=== PATIENT | female | born 1950 | race Caucasian/White ===

== ENCOUNTER 2017-04-15 10:25 | Inpatient (IN) | payer MEDICARE, MEDICAID ==
--- NOTE | 2017-04-15 10:52 | ED Physician Chart ---
Chief Complaint/HPI - Patient Information Date Seen:: 04/15/17 Time Seen:: 10:43 Chief Complaint:: sob History of Present Illness:: pt says she is recently travelled from out of [facility] and came into [facility] instead of near her home in [place] (unclear why)...she has a worsening of her copd sx today she says and also would like to talk about her chronic issues such as a enlrged gland at rt neck and her known avascular djd of l hip. she says she has talked w someone local about getting into assisted living bc she feels need to be there but they sent her here to meet w dr schaefer??? she says she is out of all her meds for COPD including vials for her neb machine. she says her neb machine is broken and she is out of all her inhalers. she says she is very sob. o2 sat 100 ra. Allergies:: Allergies Allergy/AdvReac Type Severity Reaction Status Date / Time erythromycin base Allergy Verified 04/15/17 10:39 tetracycline Allergy Verified 04/15/17 10:39 Historian:: Patient Review of Systems - Review of Systems General/Constitutional: No fever, No chills, No weight loss, No weakness, No diaphoresis, No edema, No loss of appetite Skin: No skin lesions, No rash, No bruising Head: No headache, No light-headedness Eyes: No loss of vision, No pain, No diplopia ENT: No earache, No nasal drainage, No sore throat, No tinnitus Neck: No neck pain, No swelling, No thyromegaly, No stiffness, No mass noted Cardio Vascular: No chest pain, No palpitations, No PND, No orthopnea, No edema Pulmonary: SOB, No SOB, No cough, No sputum, No wheezing GI: No nausea, No vomiting, No diarrhea, No pain, No melena, No hematochezia, No constipation, No hematemesis G/U: No dysuria, No frequency, No hematuria Musculoskeletal: No bone or joint pain, No back pain, No muscle pain Endocrine: No polyuria, No polydipsia Psychiatric: No prior psych history, No depression, No anxiety, No suicidal ideation Hematopoietic: No bruising, No lymphadenopathy Allergic/Immuno: No urticaria, No angioedema Neurological: No syncope, No focal symptoms, No weakness, No paresthesia, No headache, No seizure, No dizziness, No confusion, No vertigo Past Medical History - Past Medical History Past Medical History: Asthma/COPD Social History: Smoker, No Alcohol, Other (living in hotel) Medication: Reviewed Family Medical History - Family Member Father Hx Family Hypertension: Yes Physical Exam - Physical Examination General/Constitutional: Awake, Well-developed, well-nourished, Alert, No distress, GCS 15, Non-toxic appearing, Ambulatory Other Gen/Cons comments:: pt is alert and calm. seems stable. no rosen. no sob. no edema. thin woman but ambulatory/mobile. seems competent/cogent. Head: Atraumatic Eyes: Lids, conjuctiva normal, PERRL, EOMI Skin: Nl inspection, No rash, No skin lesions, No ecchymosis, Well hydrated, No lymphadenopathy ENMT: External ears, nose nl, Nasal exam nl, Lips, teeth, gums nl Neck: Nontender, Full ROM w/o pain, No JVD, No nuchal rigidity, No bruit, No mass, No stridor Other Neck comments:: 1cm lymph node palpable at left ant cx chain of neck..nontndr. Respiratory: Nl effort/Exclusion, Clear to Auscultation, No Wheeze/Rhonchi/Rales Other Respiratory comments:: clear no wheeze. no sob. no rosen. nonlabored breathing. Cardio Vascular: RRR, No murmur, gallop, rubs, NL S1 S2 GI: No tenderness/rebounding/guarding, No organomegaly, No hernia, Normal BS's, Nondistended, No mass/bruits, No McBurney tenderness : No CVA tenderness Extremities: No tenderness or effusion, Full ROM, normal strength in all extremities, No edema, Normal digits & nails Neuro/Psych: Alert/oriented, DTR's symmetric, Normal sensory exam, Normal motor strength, Judgement/insight normal, Mood normal, Normal gait, No focal deficits Misc: normal gait, Normal back, No paraspinal tenderness ED Septic Shock - . Is Septic Shock (SBP<90, OR Lactate>4 mmol\L) present?: No Reassessment (Disposition) - Reassessment Reassessment:: pt seems stable. staff has rumor that Dr schaefer plans admit for placement to al facility. 13;45pm have asked staff to call dr schaefer to discuss his plan...call placed. have asked staff for clarity on their thinking and have received no feedback. no callback from Dr Schaefer x 1.5 hrs. Have d/w Myelin RN -charge for hosp..advised dc pt. have written refill for pts meds albuterol mdi and neb vials and for new alb neb machine. I do not see the criticality or mandate of refilling pts valium and baclofen as she hints she has refills on hand in pharmacy and these are chronic addictive meds which I do not have the data to confirm need for etc and pt has a pmd in [facility] Reassessment Condition:: Unchanged - Diagnosis Diagnosis:: 1 copd exacerbation - mild 2 med refill albuterol 3 mod-htn poorly ctrld - Aftercare/Follow up Instructions Aftercare/Follow-Up Instructions:: Counseled pt regarding lab results/diagnosis & need follow up Notes:: pt advised fu w pmd this week for bp rechk and further advice from pmd on txoptions. return if worse. pt has shown no resp instability through ed stay. ambulates wo trouble and seems to have reasonable communication and problem solving skills. she seems well capable of adl. she does not voice SI or HI. - Patient Disposition Discharge/Transfer:: Home Condition at Disposition:: Unchanged
[2017-04-15] MEDS ORDERED: Albuterol Nebulizer 2.5mg/3mL HHN STA (11:00)
[2017-04-15 11:17] LABS: HEMATOCRIT 42.5 % (35.0-45.0); HEMOGLOBIN 14.2 gm/dL (11.7-16.1); MEAN CELL VOLUME 92.8 fl (81-100); MEAN CORPUSCULAR HGB CONC 33.4 pg (28.0-36.0); MEAN PLATELET VOLUME 9.2 fl; PLATELET COUNT 166 Th/cmm (150-400); RED BLOOD COUNT 4.59 Mil/cmm (3.80-5.20); RED CELL DISTRIBUTION WIDTH 12.6 % (11.5-20.0); WHITE BLOOD COUNT 9.3 Th/cmm (4.8-10.8)
[2017-04-15] MEDS ORDERED: Albuterol Nebulizer 2.5mg/3mL HHN ONE (11:31)
--- NOTE | 2017-04-15 11:31 | Diagnostic Imaging Report ---
Portable chest x-ray HISTORY: Shortness of breath The heart size is normal. No focal pulmonary processes. No hilar or mediastinal abnormalities. IMPRESSION: No acute abnormalities
[2017-04-15 11:32] LABS: ALB/GLOB RATIO 1.5 (1.0-1.8); ALKALINE PHOSPHATASE 54 U/L (34-104); ANION GAP 5.8 (7.0-16.0); BILIRUBIN,TOTAL 0.5 mg/dL (0.3-1.0); BUN - UREA NITROGEN 12 mg/dL (7-25); BUN/CREATININE RATIO 17.1; CALCIUM SERUM 9.1 mg/dL (8.6-10.3); CARBON DIOXIDE 29.5 mEq/L (21.0-31.0); CHLORIDE 106 mEq/L (98-107); CREATININE - SERUM 0.7 mg/dL (0.6-1.2); GLUCOSE 87 mg/dL (70-105); POTASSIUM SERUM 3.3 mEq/L (3.5-5.1); SGOT 17 U/L (13-39); SGPT/ALT 11 U/L (7-52); SODIUM SERUM 138 mEq/L (136-145)
[2017-04-15 11:59] LABS: BAND NEUTROPHILE 0 % (0-10); NEUTROPHILS 67 % (40-80); TOTAL CELLS COUNTED 100
[2017-04-15 12:00] LABS: PLATELET ESTIMATE ADEQUATE (NORMAL)
[2017-04-15] MEDS ORDERED: Potassium Chloride 20 mEq ER Tab PO ONE ×2 (13:34→13:49)
[2017-04-15 17:48] VITALS: BP 148/102
[2017-04-15] MEDS ORDERED: Magnesium Hydroxide (MOM) 30 mL UDC PO PRN (19:49)
[2017-04-15] MEDS ORDERED: Maalox 30 mL Cup PO PRN (19:49)
--- NOTE | 2017-04-16 00:30 | Admit Criteria Form ---
Admit Criteria Forms - Admit Criteria Diagnosis: COPD Clinical Indications for Admission to Inpatient Care (Place 'X' for any and all applicable criteria): Admission is indicated for ANY ONE of the following (1)(2)(3): [ X]I. Acute exacerbation by high-risk comorbidity (e.g., pneumonia, dysrhythmia, heart failure, pleural effusion, pneumothorax) or severe underlying COPD (e.g., steroid dependent) [ ]II. Inpatient admission required rather than observation care (see Chronic Obstructive Pulmonary Disease: Observation Care) because of ANY ONE of the following: [ ]a) New or pre-existing signs or symptoms of COPD (eg, dyspnea or Tachypnea at rest or with minimal activity) that persist despite outpatient and observation care treatment [ ]b) New-onset hypoxemia (room air SaO2 less than 90%, PO2 less than 60 mm Hg (8.0 kPa)) that persists despite outpatient and observation care treatment [ ]c) Worsening of pre-existing hypoxemia (eg, new or increased requirement for supplemental oxygen to maintain oxygenation at baseline level) that persists despite outpatient and observation care treatment, with oxygen treatment needs performable only in acute inpatient setting [ ]d) Hypercarbia (PCO2 greater than 40 mm Hg (5.3 kPa))-induced respiratory acidosis (pH less than 7.35) that persists despite outpatient and observation care treatment [ ]e) Supplemental oxygen or respiratory treatments for over 24 hours that are performable only in acute inpatient setting [ ]f) Chest tube placement with active evacuation (e.g., suction, drainage) (5) [ ]g) Other condition, treatment or monitoring requiring inpatient admission [ ]III. Planned invasive surgical or diagnostic procedures requiring acute- care hospitalization [ ]IV. Acute respiratory failure (e.g., uncompensated hypercarbia, severe hypoxemia) [ ]V. Severe comorbid condition (e.g., severe steroid myopathy, acute vertebral fracture) that has acutely worsened pulmonary function [ ]. Confusion state, lethargy, obtundation, stupor or coma Extended stay beyond goal length of stay may be needed for (31)(32): [ ]a ) Respiratory Failure. [ ]b) Severe or persisting hypoxemia or hypercarbia [ ]c) Severe or persistent dyspnea [ ]d) Comorbidities (e.g. chronic heart failure, atrial fibrillation with rapid response, pneumonia) [ ]e) Malnutrition The original [facility] content created by [facility] has been revised. The portions of the content which have been revised are identified through the use of italic text or in bold, and [facility] has neither reviewed nor approved the modified material. All other unmodified content is copyright [facility]. Please see references footnoted in the original [facility] edition 2016 Admit Criteria Met?: Yes
[2017-04-16] MEDS ORDERED: PREGABALIN 100 MG PO SCH (09:00)
[2017-04-16] MEDS: Multivitamin Tab PO SCH (09:13)
--- NOTE | 2017-04-16 16:19 | History and Physical ---
History of Present Illness - HPI Chief Complaint: c/o weakness HPI: 66 year old female patient with h/o COPD presented with c/o worsening sobpatient states being out of all copd meds States having enlarged glands at rt neck Vital Signs: Last Vital Signs Temp 97.6 F 04/16/17 14:34 Pulse 93 04/16/17 14:34 Resp 18 04/16/17 14:34 BP 126/70 04/16/17 14:34 Pulse Ox 97 04/16/17 14:34 Past Medical History Cardiovascular: Report: HTN Pulmonary: Report: Asthma, COPD ENGINE CLEANER: Report: No Pertinent Hx GI: Report: No Pertinent Hx Psych: Report: Depression Musculoskeletal: Report: Low Back Pain Infectious Disease: Report: No Pertinent Hx Renal/: Report: No Pertinent Hx Endocrine: Report: No Pertinent Hx Dermatology: Report: No Pertinent Hx - Past Surgical History Past Surgical History: No pertinent Hx Family Medical History - Family Member Father History Unknown: Yes Ethnicity: Unknown Living Status: Unknown Hx Family Hypertension: Yes Social History Smoke: 1 pack per day Alcohol: None Drugs: None Lives: Other (hotel) Domestic Violence: Negative Health Maintenance Health Maintenance: Other - Medications Home Medications: Home Medication Medication Instructions Recorded Type Albuterol Sulfate [Proair Hfa] 8.5 gm IH Q4H PRN #1 hfa.aer.[email or web address] 04/15/17 Rx Albuterol Sulfate [Proair Hfa] 8.5 gm IH QID 04/15/17 History Baclofen [Lioresal*] 10 mg PO QID 04/15/17 History Diazepam [Valium] 2 mg PO TID 04/15/17 History Fluticasone/Salmeterol [Advair 1 puff INH Q12H 04/15/17 History 250-50 Diskus] Lidocaine 5% Patch [Lidoderm 5% 1 patch TP DAILY 04/15/17 History Patch] Montelukast [Singulair] 10 mg PO DAILY 04/15/17 History Pregabalin [Lyrica] 100 mg PO DAILY 04/15/17 History Temazepam [Restoril] 30 mg PO HS 04/15/17 History - Allergies Allergies/Adverse Reactions: Allergies Allergy/AdvReac Type Severity Reaction Status Date / Time erythromycin base Allergy Verified 04/15/17 10:39 tetracycline Allergy Verified 04/15/17 10:39 Review of Systems - Review of Systems Constitutional: Report: No Significant Eyes: Report: No Significant ENT: Report: No Significant Respiratory: Report: SOB with Excertion. Denies: No Significant Cardiovascular: Report: No Significant Gastrointestinal: Report: No Significant, Nausea Genitourinary: Report: No Significant Musculoskeletal: Report: No Significant Skin: Report: No Significant Neurological: Report: No Significant, Weakness Physical Exam - Physical Exam HEENT: Report: Ears Nose Throat within normal limits Neck: Report: Within normal limits Cardiovascular Systems: Report: +s1/s2 noted Respiratory: Report: Breath Sounds are within normal limits Abdomen: Report: Non-tender to palpation Back: Report: Inspection of back is within normal limits.. Denies: Sacral Wound is noted with visible discharge. Extremities: Report: Non-tender to palpation. Skin: Report: Color of skin is within normal limits Neuro/Psych: Report: Mood affect is within normal limits - Lab Results All Lab Results last 24 hours: Laboratory Last Values WBC 9.3 Th/cmm (4.8-10.8) 04/15/17 11:10 RBC 4.59 Mil/cmm (3.80-5.20) 04/15/17 11:10 Hgb 14.2 gm/dL (11.7-16.1) 04/15/17 11:10 Hct 42.5 % (35.0-45.0) 04/15/17 11:10 MCV 92.8 fl (81-100) 04/15/17 11:10 MCH 31.0 pg (27.0-31.0) 04/15/17 11:10 MCHC Differential 33.4 pg (28.0-36.0) 04/15/17 11:10 RDW 12.6 % (11.5-20.0) 04/15/17 11:10 Plt Count 166 Th/cmm (150-400) 04/15/17 11:10 MPV 9.2 fl 04/15/17 11:10 Band Neutrophils % 0 % (0-10) 04/15/17 11:10 Neutrophils (Manual) 67 % (40-80) 04/15/17 11:10 Lymphocytes 25 % (20-50) 04/15/17 11:10 Monocytes 8 % (2-10) 04/15/17 11:10 Platelet Estimate ADEQUATE (NORMAL) 04/15/17 11:10 Sodium 138 mEq/L (136-145) 04/15/17 11:10 Potassium 3.3 mEq/L (3.5-5.1) L 04/15/17 11:10 Chloride 106 mEq/L (98-107) 04/15/17 11:10 Carbon Dioxide 29.5 mEq/L (21.0-31.0) 04/15/17 11:10 Anion Gap 5.8 (7.0-16.0) L 04/15/17 11:10 BUN 12 mg/dL (7-25) 04/15/17 11:10 Creatinine 0.7 mg/dL (0.6-1.2) 04/15/17 11:10 Est GFR ( Amer) > 60.0 ml/min (>90) 04/15/17 11:10 Est GFR (Non-Af Amer) > 60.0 ml/min 04/15/17 11:10 BUN/Creatinine Ratio 17.1 04/15/17 11:10 Glucose 87 mg/dL (70-105) 04/15/17 11:10 Calcium 9.1 mg/dL (8.6-10.3) 04/15/17 11:10 Total Bilirubin 0.5 mg/dL (0.3-1.0) 04/15/17 11:10 AST 17 U/L (13-39) 04/15/17 11:10 ALT 11 U/L (7-52) 04/15/17 11:10 Alkaline Phosphatase 54 U/L (34-104) 04/15/17 11:10 Troponin I < 0.01 ng/mL (0.01-0.05) L 04/15/17 11:10 Total Protein 7.1 gm/dL (6.0-8.3) 04/15/17 11:10 Albumin 4.3 gm/dL (3.7-5.3) 04/15/17 11:10 Globulin 2.8 gm/dL 04/15/17 11:10 Albumin/Globulin Ratio 1.5 (1.0-1.8) 04/15/17 11:10 - Assessment Assessment: COPD EXACERBATION HTN poorly controlled - Plan Plan: as per order sheet
[2017-04-17] MEDS: Multivitamin Tab PO SCH (08:48)
[2017-04-17] MEDS: Lidocaine 5% Patch TD SCH (08:51)
[2017-04-18] MEDS: Multivitamin Tab PO SCH (09:30)
[2017-04-18] MEDS: Lidocaine 5% Patch TD SCH (09:31)
[2017-04-18] MEDS: Albuterol Nebulizer 2.5mg/3mL HHN SCH (19:22)
--- NOTE | 2017-04-18 23:21 | Progress Notes ---
DATE: 04/18/2017 SUBJECTIVE: Chart reviewed and the patient interviewed. Also discussed the patient's condition with the staff and reviewed records and labs. The patient is still severely depressed and she is still withdrawn. The patient also is isolative and withdrawn and staying by herself most of the time. The patient also has crying spells. She feels hopeless and helpless and she is still talking about her desire to get physical therapy and other times talking about her desire to go back to where she was living. The patient also is still having episodes of anger at times, but no behavior problems. The patient is complaining of pain in her hip. ASSESSMENT: The patient is still psychotic and is still withdrawn. TREATMENT PLAN: We will continue monitoring her behavior and her condition closely. Also, the patient was started on Cymbalta, and we will continue the same dose. Also, the patient was interviewed by [facility] and waiting to hear the outcome from them. At the same time, we encouraged the patient to take her medications and to work on her discharge plans and . JOB# [id number]
[2017-04-19] MEDS: Albuterol Nebulizer 2.5mg/3mL HHN SCH ×4 (06:50→19:29)
[2017-04-19] MEDS: Multivitamin Tab PO SCH (08:59)
[2017-04-19] MEDS: Lidocaine 5% Patch TD SCH (09:07)
--- NOTE | 2017-04-19 20:41 | Progress Notes ---
DATE: 04/19/2017 SUBJECTIVE: Chart reviewed and the patient interviewed. Also discussed the patient's condition with the staff and reviewed records and labs. The patient is complaining of increased pain. She also is isolative and withdrawn and stays by herself in her room most of the time and refused to interact with others or get out of her room. She also is still preoccupied with her pain in the right hip. She also is minimizing her problems and minimizing severe level of depression. The patient also is still having problems socializing and wants to be left alone. ASSESSMENT: The patient is still depressed and is still high risk dangerous to self. TREATMENT PLAN: We will continue monitoring her behavior and her condition closely. Also, continue to work on her depression, as well as her pain management, as well as also discharge plans. JOB# [id number]
[2017-04-20] MEDS: Albuterol Nebulizer 2.5mg/3mL HHN SCH ×4 (07:03→19:20)
[2017-04-20] MEDS: Multivitamin Tab PO SCH (08:35)
[2017-04-20] MEDS: Lidocaine 5% Patch TD SCH (08:43)
--- NOTE | 2017-04-20 11:50 | Progress Notes ---
DATE: 04/20/2017 SUBJECTIVE: Chart reviewed and the patient interviewed. Also discussed the patient's condition with the staff and reviewed records and labs. The patient is still anxious and she is still severely depressed, although her affect today seems to be slightly brighter. The patient said that she got some breathing treatment that helped her energy. The patient got out of her room today for the first time, but for short periods of time, then went back to her room. She is still depressed and she is still minimizing her symptoms. She also still tends to isolate herself. ASSESSMENT: The patient is still depressed. TREATMENT PLAN: Continue Cymbalta same dose and continue to work on her ineffective coping and followup. Also, working on discharge plans and placement issue. JOB# [id number]
--- NOTE | 2017-04-20 12:34 | General Progress Note ---
Subjective - Review of Systems Events since last encounter: no distress Objective - Results Result Diagrams: 04/15/17 11:10 04/15/17 11:10 Recent Labs: Laboratory Last Values WBC 9.3 Th/cmm (4.8-10.8) 04/15/17 11:10 RBC 4.59 Mil/cmm (3.80-5.20) 04/15/17 11:10 Hgb 14.2 gm/dL (11.7-16.1) 04/15/17 11:10 Hct 42.5 % (35.0-45.0) 04/15/17 11:10 MCV 92.8 fl (81-100) 04/15/17 11:10 MCH 31.0 pg (27.0-31.0) 04/15/17 11:10 MCHC Differential 33.4 pg (28.0-36.0) 04/15/17 11:10 RDW 12.6 % (11.5-20.0) 04/15/17 11:10 Plt Count 166 Th/cmm (150-400) 04/15/17 11:10 MPV 9.2 fl 04/15/17 11:10 Band Neutrophils % 0 % (0-10) 04/15/17 11:10 Neutrophils (Manual) 67 % (40-80) 04/15/17 11:10 Lymphocytes 25 % (20-50) 04/15/17 11:10 Monocytes 8 % (2-10) 04/15/17 11:10 Platelet Estimate ADEQUATE (NORMAL) 04/15/17 11:10 Sodium 138 mEq/L (136-145) 04/15/17 11:10 Potassium 3.3 mEq/L (3.5-5.1) L 04/15/17 11:10 Chloride 106 mEq/L (98-107) 04/15/17 11:10 Carbon Dioxide 29.5 mEq/L (21.0-31.0) 04/15/17 11:10 Anion Gap 5.8 (7.0-16.0) L 04/15/17 11:10 BUN 12 mg/dL (7-25) 04/15/17 11:10 Creatinine 0.7 mg/dL (0.6-1.2) 04/15/17 11:10 Est GFR ( Amer) > 60.0 ml/min (>90) 04/15/17 11:10 Est GFR (Non-Af Amer) > 60.0 ml/min 04/15/17 11:10 BUN/Creatinine Ratio 17.1 04/15/17 11:10 Glucose 87 mg/dL (70-105) 04/15/17 11:10 Calcium 9.1 mg/dL (8.6-10.3) 04/15/17 11:10 Total Bilirubin 0.5 mg/dL (0.3-1.0) 04/15/17 11:10 AST 17 U/L (13-39) 04/15/17 11:10 ALT 11 U/L (7-52) 04/15/17 11:10 Alkaline Phosphatase 54 U/L (34-104) 04/15/17 11:10 Troponin I < 0.01 ng/mL (0.01-0.05) L 04/15/17 11:10 Total Protein 7.1 gm/dL (6.0-8.3) 04/15/17 11:10 Albumin 4.3 gm/dL (3.7-5.3) 04/15/17 11:10 Globulin 2.8 gm/dL 04/15/17 11:10 Albumin/Globulin Ratio 1.5 (1.0-1.8) 04/15/17 11:10 - Physical Exam Vitals and I&O: Vital Signs Temp 97.9 F 04/20/17 07:18 Pulse 63 04/20/17 11:03 Resp 18 04/20/17 11:03 BP 156/92 04/20/17 07:18 Pulse Ox 97 04/20/17 11:03 Intake & Output 04/19/17 04/20/17 04/20/17 18:59 06:59 18:59 Other: # Voids 2 # Bowel Movements 0 Active Medications: Current Medications Acetaminophen (Tylenol) 650 mg PO Q4HR PRN PRN Reason: Mild Pain / Temp above 100 Stop: 06/14/17 19:48 Last Admin: 04/19/17 01:53 Dose: 650 mg Al Hydrox/Mg Hydrox/Simethicone (Maalox) 30 ml PO Q4HR PRN PRN Reason: GI DISTRESS Stop: 06/14/17 19:48 Albuterol Sulfate (Albuterol 2.5mg/3ml Neb Ud) 2.5 mg HHN QIDRT MARYURI Stop: 06/17/17 10:59 Last Admin: 04/20/17 11:02 Dose: 2.5 mg Baclofen (Lioresal) 10 mg PO QID MARYURI Stop: 06/15/17 16:59 Last Admin: 04/20/17 08:34 Dose: 10 mg Diazepam (Valium) 2 mg PO TID MARYURI PRN Reason: Protocol Stop: 06/15/17 20:59 Last Admin: 04/20/17 08:34 Dose: 2 mg Duloxetine HCl (Cymbalta) 30 mg PO DAILY MARYURI PRN Reason: Protocol Stop: 06/16/17 08:59 Last Admin: 04/20/17 08:35 Dose: 30 mg Lidocaine (Lidoderm 5% Patch) 1 patch TD DAILY [facility] Stop: 06/16/17 08:59 Last Admin: 04/20/17 08:43 Dose: 1 patch Lorazepam (Ativan) 0.5 mg PO Q4HR PRN; Protocol PRN Reason: Anxiety Stop: 05/15/17 19:48 Last Admin: 04/18/17 16:27 Dose: 0.5 mg Magnesium Hydroxide (Milk Of Magnesia) 30 ml PO HS PRN PRN Reason: Constipation Montelukast Sodium (Singulair) 10 mg PO DAILY [facility] Stop: 06/15/17 08:59 Last Admin: 04/20/17 08:34 Dose: 10 mg Multivitamins/Vitamin C (Theragran) 1 tab PO DAILY MARYURI Stop: 06/15/17 08:59 Last Admin: 04/20/17 08:35 Dose: 1 tab Pregabalin (Lyrica) 100 mg PO DAILY MARYURI Stop: 06/15/17 08:59 Last Admin: 04/20/17 08:36 Dose: 100 mg Temazepam (Restoril) 30 mg PO HS MARYURI Stop: 06/15/17 20:59 Last Admin: 04/19/17 21:27 Dose: 30 mg Zolpidem Tartrate (Ambien) 5 mg PO HSMR1 PRN PRN Reason: Insomnia Stop: 06/14/17 19:48 Last Admin: 04/15/17 23:18 Dose: 5 mg General: No acute distress HEENT: Atraumatic Neck: Supple Cardiovascular: Regular rate, Normal S1, Normal S2 Assessment/Plan - Assessment Assessment: COPD EXACERBATION HTN poorly controlled - Plan Plan: monitor vitals diet labs Nutritional Asmnt/Malnutr-PDOC - Dietary Evaluation Malnutrition Findings (Please click <Entered> for more info): Nutritional Asmnt/Malnutrition Start: 04/16/17 12: 04 Text: Status: Complete Freq: Document 04/16/17 12:04 ALEXEY (Rec: 04/16/17 12:25 [email or web address]) Nutritional Asmnt/Malnutrition Patient General Information Nutritional Screening High Risk Screening Diagnosis ER: suicide ideation, 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 Spoke to pt resting in bed. Pt appeared very concious and aware of her overall health. Pt informed RD her potassium is low and where she could get more potassium. Pt appeared worried about her weight, stating UBW 120lb last year, 115lb this Feburary and has been gradually losing weight, cause unknown. Pt reported she drinks Ensure everyday and requested for equivalent, RD agreed to plan. Obtained CBW 102.7lb with pt off and bedscale calibrated. Limited physical assessment due to clothinng, moderate to severe wasting to chest, pt showed RD protruding pelvic bone, which pt is very concerned about. Pt stated usually good appetite, motivated to maintain/gain weight. No difficulties eating . Current Diet Order/ Nutrition Support Regular Pertinent Medications Maalox, MOM, Theragran Pertinent Labs Reviewed. Potassium 3.3L Nutritional Hx/Data Height 1.57 m Height (Calculated Centimeters) 157.5 Current Weight (lbs) 46.584 kg Weight (Calculated Kilograms) 46.6 Weight (Calculated Grams) 84524.9 Usual body Weight (lbs) 115 [place] Body Weight 110 Weight Status Underweight GI Symptoms Food Allergies No Cultural/Ethnic/Adventist Belief Pt reported she usually "goes through cases of Ensure" to maintain weight. Pt has tried Ensure, Boost, and many oral supplements. Pt only likes Vanilla flavor, stated Chocolate flavor appears as a snack and not nutritionally beneficial. Skin Integrity/Comment: Phil 23. Skin intact. Estimated Nutritional Goals Calories/Kcals/Kg IBW 110lb/50kg Kcals Calculated 1500-1750kcal Protein Calculated 50-65g (1-1.3g/kg) Fluid: ml 1500-1750ml (1ml/kcal) Nutritional Problem 1. Problem Problem Malnutrition related to Etiology unknown etiology aeb Signs/Symptoms: BMI <18.5, 10.7% weight loss in 6 months, severe wasting to chest Malnutrition Alert Interpretation of weight loss (Severe) >10% in 6 months Body Fat Depletion (Severe) Mod to Severe Depletion Is there a minimum of two criteria Yes selected? Query Text:Check all the applicable criteria. A minimum of two criteria are recommended for diagnosis of either severe or non-severe malnutrition. Intervention/Recommendation Comments 1. Continue with current diet order. 2. Recommend Boost Plus TID per pt request and RD agreement. 3. Closely monitor weight. CBW 102.7lb with pt off and bedscale calibrated. Pt is very concerned with her weight , motivated to gain weight. Expected Outcomes/Goals Expected Outcomes/Goals 1. PO intake to meet 100% of estimated nutritional needs. 2. Weight trend towards UBW 120lb last year.
[2017-04-21] MEDS: Albuterol Nebulizer 2.5mg/3mL HHN SCH ×3 (06:26→14:31)
[2017-04-21] MEDS: Multivitamin Tab PO SCH (08:34)
[2017-04-21] MEDS: Lidocaine 5% Patch TD SCH (08:39)
--- NOTE | 2017-04-21 10:12 | Progress Notes ---
DATE: 04/21/2017 Case was discussed with staff of the patient, reviewed records. Covering for Dr. Schneider. SUBJECTIVE: This is a 66-year-old female who was admitted on 04/15/2017. The patient was diagnosed with schizoaffective disorder. The patient is reported by the staff to be compliant with the medications with no side effects. She is sleeping better, eating better, complaining of pain at times and that is handled by the medical doctor, Dr. Nielson. She has been compliant with the medication with no side effects and she is on temazepam 50 mg at bedtime and she is on duloxetine 30 mg daily that was started on the , so because of her complaint of pain, though I am not treating her pain, but because of her depression and mood I will be increasing the dose to 60 mg a day and so far no side effects with the medication, no sedation, no nausea. Lab work showed her CBC within normal range. Chemistry panel: Low potassium, the rest within normal range. We will put the patient in group therapy, milieu therapy, adjust the medication as needed. JOB# [id number]
--- NOTE | 2017-04-21 11:51 | General Progress Note ---
Subjective - Review of Systems Events since last encounter: patient doing better pain well controlled Objective - Results Result Diagrams: 04/15/17 11:10 04/15/17 11:10 Recent Labs: Laboratory Last Values WBC 9.3 Th/cmm (4.8-10.8) 04/15/17 11:10 RBC 4.59 Mil/cmm (3.80-5.20) 04/15/17 11:10 Hgb 14.2 gm/dL (11.7-16.1) 04/15/17 11:10 Hct 42.5 % (35.0-45.0) 04/15/17 11:10 MCV 92.8 fl (81-100) 04/15/17 11:10 MCH 31.0 pg (27.0-31.0) 04/15/17 11:10 MCHC Differential 33.4 pg (28.0-36.0) 04/15/17 11:10 RDW 12.6 % (11.5-20.0) 04/15/17 11:10 Plt Count 166 Th/cmm (150-400) 04/15/17 11:10 MPV 9.2 fl 04/15/17 11:10 Band Neutrophils % 0 % (0-10) 04/15/17 11:10 Neutrophils (Manual) 67 % (40-80) 04/15/17 11:10 Lymphocytes 25 % (20-50) 04/15/17 11:10 Monocytes 8 % (2-10) 04/15/17 11:10 Platelet Estimate ADEQUATE (NORMAL) 04/15/17 11:10 Sodium 138 mEq/L (136-145) 04/15/17 11:10 Potassium 3.3 mEq/L (3.5-5.1) L 04/15/17 11:10 Chloride 106 mEq/L (98-107) 04/15/17 11:10 Carbon Dioxide 29.5 mEq/L (21.0-31.0) 04/15/17 11:10 Anion Gap 5.8 (7.0-16.0) L 04/15/17 11:10 BUN 12 mg/dL (7-25) 04/15/17 11:10 Creatinine 0.7 mg/dL (0.6-1.2) 04/15/17 11:10 Est GFR ( Amer) > 60.0 ml/min (>90) 04/15/17 11:10 Est GFR (Non-Af Amer) > 60.0 ml/min 04/15/17 11:10 BUN/Creatinine Ratio 17.1 04/15/17 11:10 Glucose 87 mg/dL (70-105) 04/15/17 11:10 Calcium 9.1 mg/dL (8.6-10.3) 04/15/17 11:10 Total Bilirubin 0.5 mg/dL (0.3-1.0) 04/15/17 11:10 AST 17 U/L (13-39) 04/15/17 11:10 ALT 11 U/L (7-52) 04/15/17 11:10 Alkaline Phosphatase 54 U/L (34-104) 04/15/17 11:10 Troponin I < 0.01 ng/mL (0.01-0.05) L 04/15/17 11:10 Total Protein 7.1 gm/dL (6.0-8.3) 04/15/17 11:10 Albumin 4.3 gm/dL (3.7-5.3) 04/15/17 11:10 Globulin 2.8 gm/dL 04/15/17 11:10 Albumin/Globulin Ratio 1.5 (1.0-1.8) 04/15/17 11:10 - Physical Exam Vitals and I&O: Vital Signs Temp 98.6 F 04/21/17 06:26 Pulse 85 04/21/17 10:44 Resp 14 04/21/17 10:44 BP 152/76 04/21/17 06:26 Pulse Ox 98 04/21/17 10:44 Intake & Output 04/20/17 04/21/17 04/21/17 18:59 06:59 18:59 Intake Total 1000 Balance 1000 Intake: Oral 1000 Other: # Voids 4 # Bowel Movements 1 Active Medications: Current Medications Acetaminophen (Tylenol) 650 mg PO Q4HR PRN PRN Reason: Mild Pain / Temp above 100 Stop: 06/14/17 19:48 Last Admin: 04/19/17 01:53 Dose: 650 mg Al Hydrox/Mg Hydrox/Simethicone (Maalox) 30 ml PO Q4HR PRN PRN Reason: GI DISTRESS Stop: 06/14/17 19:48 Albuterol Sulfate (Albuterol 2.5mg/3ml Neb Ud) 2.5 mg HHN QIDRT MARYURI Stop: 06/17/17 10:59 Last Admin: 04/21/17 10:44 Dose: 2.5 mg Baclofen (Lioresal) 10 mg PO QID MARYURI Stop: 06/15/17 16:59 Last Admin: 04/21/17 08:33 Dose: 10 mg Diazepam (Valium) 2 mg PO TID MARYURI PRN Reason: Protocol Stop: 06/15/17 20:59 Last Admin: 04/21/17 08:33 Dose: 2 mg Duloxetine HCl (Cymbalta) 60 mg PO DAILY MARYURI PRN Reason: Protocol Stop: 06/20/17 08:59 Last Admin: 04/21/17 08:33 Dose: 60 mg Lidocaine (Lidoderm 5% Patch) 1 patch TD DAILY MARYURI Stop: 06/16/17 08:59 Last Admin: 04/21/17 08:39 Dose: 1 patch Lorazepam (Ativan) 0.5 mg PO Q4HR PRN; Protocol PRN Reason: Anxiety Stop: 05/15/17 19:48 Last Admin: 04/20/17 16:40 Dose: 0.5 mg Magnesium Hydroxide (Milk Of Magnesia) 30 ml PO HS PRN PRN Reason: Constipation Montelukast Sodium (Singulair) 10 mg PO DAILY MARYURI Stop: 06/15/17 08:59 Last Admin: 04/21/17 08:34 Dose: 10 mg Multivitamins/Vitamin C (Theragran) 1 tab PO DAILY MARYURI Stop: 06/15/17 08:59 Last Admin: 04/21/17 08:34 Dose: 1 tab Pregabalin (Lyrica) 100 mg PO DAILY MARYURI Stop: 06/15/17 08:59 Last Admin: 04/21/17 08:34 Dose: 100 mg Temazepam (Restoril) 30 mg PO HS MARYURI Stop: 06/15/17 20:59 Last Admin: 04/20/17 21:26 Dose: 30 mg Zolpidem Tartrate (Ambien) 5 mg PO HSMR1 PRN PRN Reason: Insomnia Stop: 06/14/17 19:48 Last Admin: 04/15/17 23:18 Dose: 5 mg General: No acute distress HEENT: Atraumatic Neck: Supple Cardiovascular: Regular rate, Normal S1, Normal S2 Assessment/Plan - Assessment Assessment: COPD EXACERBATION HTN poorly controlled - Plan Plan: monitor vitals diet labs Nutritional Asmnt/Malnutr-PDOC - Dietary Evaluation Malnutrition Findings (Please click <Entered> for more info): Nutritional Asmnt/Malnutrition Start: 04/16/17 12: 04 Text: Status: Complete Freq: Document 04/16/17 12:04 GSUN (Rec: 04/16/17 12:25 [email or web address] [email or web address]) Nutritional Asmnt/Malnutrition Patient General Information Nutritional Screening High Risk Screening Diagnosis ER: suicide ideation, 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 Spoke to pt resting in bed. Pt appeared very concious and aware of her overall health. Pt informed RD her potassium is low and where she could get more potassium. Pt appeared worried about her weight, stating UBW 120lb last year, 115lb this Feburary and has been gradually losing weight, cause unknown. Pt reported she drinks Ensure everyday and requested for equivalent, RD agreed to plan. Obtained CBW 102.7lb with pt off and bedscale calibrated. Limited physical assessment due to clothinng, moderate to severe wasting to chest, pt showed RD protruding pelvic bone, which pt is very concerned about. Pt stated usually good appetite, motivated to maintain/gain weight. No difficulties eating . Current Diet Order/ Nutrition Support Regular Pertinent Medications Maalox, MOM, Theragran Pertinent Labs Reviewed. Potassium 3.3L Nutritional Hx/Data Height 1.57 m Height (Calculated Centimeters) 157.5 Current Weight (lbs) 46.584 kg Weight (Calculated Kilograms) 46.6 Weight (Calculated Grams) 44621.9 Usual body Weight (lbs) 115 [place] Body Weight 110 Weight Status Underweight GI Symptoms Food Allergies No Cultural/Ethnic/Judaism Belief Pt reported she usually "goes through cases of Ensure" to maintain weight. Pt has tried Ensure, Boost, and many oral supplements. Pt only likes Vanilla flavor, stated Chocolate flavor appears as a snack and not nutritionally beneficial. Skin Integrity/Comment: Phil 23. Skin intact. Estimated Nutritional Goals Calories/Kcals/Kg IBW 110lb/50kg Kcals Calculated 1500-1750kcal Protein Calculated 50-65g (1-1.3g/kg) Fluid: ml 1500-1750ml (1ml/kcal) Nutritional Problem 1. Problem Problem Malnutrition related to Etiology unknown etiology aeb Signs/Symptoms: BMI <18.5, 10.7% weight loss in 6 months, severe wasting to chest Malnutrition Alert Interpretation of weight loss (Severe) >10% in 6 months Body Fat Depletion (Severe) Mod to Severe Depletion Is there a minimum of two criteria Yes selected? Query Text:Check all the applicable criteria. A minimum of two criteria are recommended for diagnosis of either severe or non-severe malnutrition. Intervention/Recommendation Comments 1. Continue with current diet order. 2. Recommend Boost Plus TID per pt request and RD agreement. 3. Closely monitor weight. CBW 102.7lb with pt off and bedscale calibrated. Pt is very concerned with her weight , motivated to gain weight. Expected Outcomes/Goals Expected Outcomes/Goals 1. PO intake to meet 100% of estimated nutritional needs. 2. Weight trend towards UBW 120lb last year.
== END 2017-04-21 17:06 | DRG 885 ==
LOC: ER 10:25 → GERO 16:57
PROVIDERS: ADMIT Psychiatry & Neurology Psychiatry; ATTEND Psychiatry & Neurology Psychiatry
DX: F25.9 Schizoaffective disorder, unspecified (principal); R45.851 Suicidal ideations; J44.1 Chronic obstructive pulmonary disease with (acute) exacerbation; G89.29 Other chronic pain; I10 Essential (primary) hypertension; F17.210 Nicotine dependence, cigarettes, uncomplicated; M19.90 Unspecified osteoarthritis, unspecified site; F41.9 Anxiety disorder, unspecified; Z82.49 Family history of ischemic heart disease and other diseases of the circulatory system; Z79.899 Other long term (current) drug therapy; Z88.1 Allergy status to other antibiotic agents
CPT/HCPCS: 36415-UA; 71010-TC; 80053-TC; 84484-TC; 85007-TC; 85027-TC; 93005; 94640; 94760; G0410; J7613; Z7610